=== PATIENT | female | born 2000 | race Caucasian/White ===

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

== ENCOUNTER 2021-01-25 09:54 | Emergency (ER) | payer MEDICAID ==
[~2021-01-25] VITALS: Ht 154.9 cm; Wt 62.0 kg
[2021-01-25 10:09] VITALS: BP 117/69
[2021-01-25 12:13] LABS: CLARITY URINE CLEAR (CLEAR); COLOR URINE YELLOW (YELLOW); KETONES URINE NEGATIVE (NEGATIVE); LEUKOCYTE ESTERASE URINE 2+ (NEGATIVE); NITRITE URINE NEGATIVE (NEGATIVE); OCCULT BLOOD URINE NEGATIVE (NEGATIVE); PH URINE 7.5 (4.5-8.0); PROTEIN URINE NEGATIVE (NEGATIVE); SPECIFIC GRAVITY URINE 1.021 (1.005-1.030)
[2021-01-25] MEDS ORDERED: VALA500T PO (12:44)
[2021-01-25] MEDS ORDERED: SULF1TAB48 MT (12:44)
[2021-01-25] MEDS ORDERED: FLUC150T5 PO (12:44)
== END 2021-01-25 12:55 | disposition home or self-care (01) ==
LOC: ER 09:54
DX: N39.0 Urinary tract infection, site not specified (principal); N76.0 Acute vaginitis; F12.10 Cannabis abuse, uncomplicated; Z79.899 Other long term (current) drug therapy
CPT/HCPCS: 81003; 81025; 99283

== ENCOUNTER 2021-02-15 13:51 | Emergency (ER) | payer MEDICAID ==
[~2021-02-15] VITALS: Ht 162.6 cm; Wt 61.0 kg
[~2021-02-15 13:51] MED LIST changes: +FLUC150T5 PO; +SULF1TAB48 MT; +VALA500T PO
[2021-02-15 14:16] VITALS: BP 114/64
[2021-02-15 15:47] LABS: CLARITY URINE CLEAR (CLEAR); COLOR URINE YELLOW (YELLOW); KETONES URINE NEGATIVE (NEGATIVE); LEUKOCYTE ESTERASE URINE 1+ (NEGATIVE); NITRITE URINE NEGATIVE (NEGATIVE); OCCULT BLOOD URINE NEGATIVE (NEGATIVE); PROTEIN URINE NEGATIVE (NEGATIVE); SPECIFIC GRAVITY URINE 1.026 (1.005-1.030); UROBILINOGEN URINE 0.2 E.U./dL (0.2-1.0)
[2021-02-15] MEDS ORDERED: VALA500T PO (16:35)
[2021-02-15] MEDS ORDERED: FLUC150T5 PO (16:35)
[2021-02-18 04:07] LABS: NEISSERIA GONORRHOEAE NAA Negative (Negative)
== END 2021-02-15 17:08 | disposition home or self-care (01) ==
LOC: ER 13:51
DX: B00.9 Herpesviral infection, unspecified (principal); J06.9 Acute upper respiratory infection, unspecified; F12.10 Cannabis abuse, uncomplicated; Z79.899 Other long term (current) drug therapy; Z88.0 Allergy status to penicillin; Z20.822 Contact with and (suspected) exposure to COVID-19
CPT/HCPCS: 81003; 87491; 87591; 99283; C9803; U0003; U0005

== ENCOUNTER 2021-02-25 09:01 | Emergency (ER) | payer MEDICAID ==
[~2021-02-25] VITALS: Ht 162.6 cm; Wt 62.0 kg
[2021-02-25 09:12] VITALS: BP 103/65
[2021-02-25] MEDS ORDERED: FAMC500T3 MT (10:59)
[2021-02-25] MEDS ORDERED: FAMC250T2 MT (10:59)
[2021-02-25] MEDS ORDERED: IBUP-2029 MT (10:59)
== END 2021-02-25 11:15 | disposition home or self-care (01) ==
LOC: ER 09:01
DX: A60.04 Herpesviral vulvovaginitis (principal); F12.10 Cannabis abuse, uncomplicated; Z88.0 Allergy status to penicillin
CPT/HCPCS: 99283

== ENCOUNTER 2021-03-11 09:08 | Emergency (ER) | payer MEDICAID ==
[~2021-03-11] VITALS: Ht 162.6 cm; Wt 62.0 kg
[~2021-03-11 09:08] MED LIST changes: +FAMC250T2 MT; +FAMC500T3 MT; +IBUP-2029 MT
[2021-03-11 09:10] VITALS: BP 108/61
[2021-03-11 10:39] LABS: CLARITY URINE CLEAR (CLEAR); COLOR URINE YELLOW (YELLOW); KETONES URINE NEGATIVE (NEGATIVE); LEUKOCYTE ESTERASE URINE 1+ (NEGATIVE); NITRITE URINE NEGATIVE (NEGATIVE); OCCULT BLOOD URINE NEGATIVE (NEGATIVE); PH URINE 6.5 (4.5-8.0); PROTEIN URINE NEGATIVE (NEGATIVE); SPECIFIC GRAVITY URINE 1.026 (1.005-1.030)
[2021-03-11] MEDS ORDERED: NITR-87 MT (11:10)
== END 2021-03-11 11:30 | disposition home or self-care (01) ==
LOC: ER 09:08
DX: N30.00 Acute cystitis without hematuria (principal); B00.9 Herpesviral infection, unspecified; F12.10 Cannabis abuse, uncomplicated; Z88.0 Allergy status to penicillin
CPT/HCPCS: 81003; 99283

== ENCOUNTER 2021-03-30 10:39 | Emergency (ER) | payer MEDICAID ==
[~2021-03-30] VITALS: Ht 162.6 cm; Wt 61.0 kg
[~2021-03-30 10:39] MED LIST changes: +NITR-87 MT
[2021-03-30 10:56] VITALS: BP 114/76
[2021-03-30] MEDS ORDERED: MAGNESIUM/ALUMINUM HYDROXIDE/SIMETHICONE 30ML UDC PO ONE (12:30)
[2021-03-30] MEDS ORDERED: VISCOUS LIDOCAINE 2% 15 ML UDC PO ONE (12:30)
[2021-03-30] MEDS ORDERED: MAG355OR21 MT (14:58)
[2021-04-01 05:09] LABS: HIV SCREEN 4G Non Reactive (Non Reactive)
[2021-04-02 19:11] LABS: NEISSERIA GONORRHOEAE NAA Negative (Negative)
== END 2021-03-30 15:36 | disposition home or self-care (01) ==
LOC: ER 10:39
DX: A60.04 Herpesviral vulvovaginitis (principal); K13.70 Unspecified lesions of oral mucosa; Z20.2 Contact with and (suspected) exposure to infections with a predominantly sexual mode of transmission; F12.90 Cannabis use, unspecified, uncomplicated; Z88.0 Allergy status to penicillin; Z88.8 Allergy status to other drugs, medicaments and biological substances
CPT/HCPCS: 81025; 86703; 87389; 87491; 87591; 99283

== ENCOUNTER 2021-10-27 09:03 | Emergency (ER) | payer MEDICAID ==
[~2021-10-27] VITALS: Ht 162.6 cm; Wt 60.0 kg
[~2021-10-27 09:03] MED LIST changes: +FLUC150T46 PO; -FLUC150T5 PO; +MAG355OR21 MT
[2021-10-27 09:12] VITALS: BP 106/57
[2021-10-27 10:10] LABS: CLARITY URINE TURBID (CLEAR); COLOR URINE YELLOW (YELLOW); KETONES URINE NEGATIVE (NEGATIVE); LEUKOCYTE ESTERASE URINE 3+ (NEGATIVE); NITRITE URINE NEGATIVE (NEGATIVE); OCCULT BLOOD URINE NEGATIVE (NEGATIVE); PH URINE 8.5 (4.5-8.0); PROTEIN URINE TRACE (NEGATIVE); SPECIFIC GRAVITY URINE 1.021 (1.005-1.030)
[2021-10-27] MEDS ORDERED: NITR-87 MT (10:55)
[2021-10-27] MEDS ORDERED: PHEN-909 MT (10:55)
[2021-10-30] MEDS ORDERED: DOXY100C5 MT (13:08)
== END 2021-10-27 11:06 | disposition home or self-care (01) ==
LOC: ER 09:19
DX: R30.0 Dysuria (principal); F12.10 Cannabis abuse, uncomplicated; Z88.0 Allergy status to penicillin; Z88.9 Allergy status to unspecified drugs, medicaments and biological substances; Z79.899 Other long term (current) drug therapy
CPT/HCPCS: 81003; 81025; 99283